=== PATIENT | male | born 1985 | race Caucasian/White ===

== ENCOUNTER 2018-07-30 14:44 | Emergency (ER) | payer SELFPAY ==
[~2018-07-30] VITALS: Ht 182.9 cm; Wt 87.5 kg
[2018-07-30] MEDS ORDERED: IBUPROFEN 600 MG TABLET PO ONE ×2 (15:00→15:04)
[2018-07-30] MEDS ORDERED: HYDROCODONE/APAP 5/325MG 1 EACH TABLET PO ONE (15:00)
[2018-07-30] MEDS ORDERED: HYDROCODONE/APAP 5/325MG 1 EACH TABLET ONE (15:04)
--- NOTE | 2018-07-30 15:08 | NUR ---
BIB FRIEND C/O WORSENING LEFT RIB X 3 WEEKS, WORSE WHEN COUGHING. PT AAOX4, VSS. DENIES CP, SOB, DIZZINESS, N/V @ THIS TIME. SEEN & EVAL'D BY JAVIER LEIVA. MEDICATED FOR PAIN & WILL CONT TO MONITOR.
--- NOTE | 2018-07-30 16:00 | NUR ---
Patient discharged to home in stable condition. Written and verbal after care instructions given. Patient verbalizes understanding of instruction.
[2018-07-30 16:01] VITALS: BP 124/75
== END 2018-07-30 16:02 | disposition home or self-care (01) ==
LOC: ER 14:45
DX: R07.89 Other chest pain (principal); R07.81 Pleurodynia
CPT/HCPCS: 71045; 93005; 99283; A4606; Z7610